=== PATIENT | male | born 1985 | race Caucasian/White ===

== ENCOUNTER → 2016-10-22 | Outpatient (CLI) | payer OTHER ==
--- NOTE | 2016-10-22 08:41 | REP ---
Prostate sonography: History: BPH. International prostate symptoms score of 02/14. Sonographic findings: Trans rectal prostate sonography demonstrates unremarkable seminal vesicles. Prostate gland is heterogeneous with water to calcifications centrally and mild BPH changes . Glandular dimensions are measured at 4.2 x 2.7 x 3.9 cm with a calculated glandular volume of 23.1 ml. No peripheral zone lesion is seen. Impression: Minimal BPH changes and water to dystrophic calcifications in the prostate. Otherwise negative. Signed by Daniel Sierra MD 10/22/2016 08:32 A
== END ==
LOC: M RAD 07:38
PROVIDERS: ATTEND Family Medicine
DX: N40.0 Benign prostatic hyperplasia without lower urinary tract symptoms (principal)

== ENCOUNTER → 2017-01-14 | Outpatient (CLI) | payer OTHER ==
--- NOTE | 2017-01-14 17:19 | REP ---
MAXILLOFACIAL CT WITHOUT CONTRAST: HISTORY: Chronic sinusitis. The sinuses are clear. The ostiomeatal units are patent. The middle and inferior nasal turbinates are partially paradoxical. There is minimal deviation of the nasal septum to the left. A spur is present arising from the left side of the nasal septum. The cribriform plate, medial osorio of the orbits and optic canals are intact. The carotid canals form a segment of the posterolateral osorio of the sphenoid sinus. The sphenoid sinus septum inserts into the left internal carotid canal wall. IMPRESSION: There is no acute or chronic sinusitis. Signed by Ian Mchugh MD 01/15/2017 08:14 A
== END ==
LOC: M RAD 16:31
PROVIDERS: ATTEND Otolaryngology
DX: J32.4 Chronic pansinusitis (principal)